=== PATIENT | male | born 1965 | race Caucasian/White ===

== ENCOUNTER 2017-08-19 06:43 | Day surgery (SDC) | payer BC, SELFPAY ==
[2017-08-13 12:47] VITALS: BMI 22.2
[2017-08-19] VITALS (8 sets, daily range): BP systolic 106–143; BP diastolic 66–82; PULSE 52–59; RESP 16–20; TEMP 36.2–36.3; O2SAT 98–100
--- NOTE | 2017-08-19 08:16 | HMH.PROC ---
[facility] Procedure Note Procedure Note:: Colonoscopy Procedure Report: Colonoscopy with cold snare polypectomy Endoscopist: Brendan Alberts II, MD Referring physician: Jose Tafoya MD Date of Procedure: August 19, 2017 Equipment: Olympus 180 variable stiffness pediatric colonoscope Sedation: MAC sedation Indication: Mr. Meza is a 52-year-old gentleman who is here for initial screening colonoscopy. He does state that both his mother and father had colon cancer in their late 50s. He reports no abdominal pain, weight loss, change in his bowel habits or rectal bleeding. Procedure: Prior to the procedure, a history and physical exam was performed, and patient's medications and allergies were reviewed. The risks, benefits and alternatives of the sedation and procedure were discussed with the patient. All questions were answered and informed consent was obtained. The patient was brought to the procedure room. Patient identification and proposed procedure were verified by the physician and the nurse. The patient was placed in a left lateral decubitus position and the scope was passed under direct vision. Throughout the procedure, the patient's blood pressure, pulse, and oxygen saturations were monitored continuously. The colonoscopy was accomplished without difficulty. The patient tolerated the procedure well. Findings: On digital rectal examination there was normal rectal tone. There were no external hemorrhoids. The prostate was 2+, smooth, soft, symmetric without nodules. The colonoscope was introduced through the anal canal to the rectum and advanced to the cecum. The ileocecal valve and appendiceal orifice were identified. The scope was advanced a short distance into the ileum which appeared grossly normal. The scope was then withdrawn into the colon. There were 3 diminutive colon polyps identified in the descending ?1 and sigmoid ?2. These ranged in size from 4-5 mm and were all removed via cold snare polypectomy. The remaining cecum, ascending, transverse, descending, sigmoid and rectum were grossly normal. There were no other mucosal abnormalities identified. Upon retroflexion within the rectum there were grade 1 internal hemorrhoids. Impression: 1. Diminutive colonic polyps ?3 2. Grade 1 internal hemorrhoids Plan: I will follow up the polyp pathology and recommend repeat colonoscopy again in 5 years based upon the patient's family history and polyp histology. I would encourage fiber supplementation on a long-term daily maintenance basis.
--- NOTE | 2017-08-19 15:33 | P.PN_ITS ---
[facility] [place] Anesthesia Checklist - Patient Identification Patient Identification: Arm Band - Structural Data Admitted From: Home Planned Operative Procedure/s: colonoscopy Consent for Planned Operative Procedure(s) Verified: Yes Verified Documents: Surgical Consent, History and Physical - NPO Status Verified Time NPO: 00:00 - Additional verifications Anesthesia Reactions: No - Airway Assessment C-Spine Mobility Assessed: Yes (mp2) TMJ Mobility Assessed: Yes Dentition: Good Dentition - Neurological Assessment Level of Consciousness: Awake, Alert - Anesthesia Plan Anesthesia Risk discussed: Yes Anesthesia Plan: Verified ASA Class: I Anesthesia Type: MAC [facility] [place] Anesthesia HX I have reviewed the patient's past medical history: Yes Medical History: Denies:: Diabetes Mellitus Type 1, Diabetes Mellitus Type 2, Internal Pacemaker, Lung Disease, Seizures Other Surgeries: No: Pacemaker
== END 2017-08-19 09:40 | disposition home or self-care (01) ==
LOC: OUTP 06:46
PROVIDERS: PCP Family Medicine; Visit Provider Internal Medicine Gastroenterology
PROC: 0DJD8ZZ Inspection of Lower Intestinal Tract, Via Natural or Artificial Opening Endoscopic (ICD-10-PCS; CPT 45378; principal; 2017-08-19 08:00)
DX: Z12.11 Encounter for screening for malignant neoplasm of colon (principal); K63.5 Polyp of colon; K64.0 First degree hemorrhoids; Z80.0 Family history of malignant neoplasm of digestive organs
CPT/HCPCS: 45380

== ENCOUNTER 2020-05-28 09:54 | Emergency (ER) | payer BC, SELFPAY ==
[2020-05-28 10:55] VITALS: BP 130/77; PULSE 66; RESP 14; TEMP 36.8; O2SAT 98; BMI 22.2
--- NOTE | 2020-05-28 11:15 | HMH.EDUTC ---
[facility] Disposition Clinical Impression: Exposure to COVID-19 virus Disposition: Home, Self-Care Condition on Discharge: Good Instructions: Preventing the Spread of Coronavirus Discharge Instructions Additional Instructions: Drink plenty of fluids. Take tylenol for pain or fever. Follow up with your regular doctor. GO TO THE ER FOR ANY WORSENING SYMPTOMS Referrals: Jorge Tafoya MD [Primary Care Provider] - Time of Disposition: 11:16 Medical Decision Making - Medical Records Medical records reviewed: No: I reviewed the patient's medical records. - Hung Inquiry Pt receiving controlled substance: No Vital Signs: 05/28/20 10:55 05/28/20 11:20 Temperature 98.2 F 98.2 F Temperature Source Oral Pulse Rate 66 Pulse Rate [Right Brachial] 66 Respiratory Rate 14 14 Blood Pressure 130/77 Blood Pressure [Right Arm] 130/77 Blood Pressure Mean [Right Arm] 94 Blood Pressure Source [Right Arm] Automatic Cuff Blood Pressure Position [Right Arm] Sitting 02 Sat by Pulse Oximetry 98 Oxygen Delivery Method Room Air Orders (Tests/Meds): ORDERS Category Date Time Status Covid-19 Nasal PCR ([facility]) Routine Lab 05/28/20 11:00 Received [facility] HPI - General Stated complaint: covid exposure Time Seen by Provider: 05/28/20 11:15 Mode of Arrival: Ambulatory Source of Information: Patient Limitations: No Limitations Description of Symptoms (Recalled from Triage Doc. by RN): PATIENT C/O HEADAHCE, CHILLS, AND BODY ACHES X 4 DAYS HEENT Symptoms (Recalled from RN notes): No Resp Symptoms (Recalled from RN notes): No Skin Symptoms (Recalled from RN notes): No MS Symptoms (Recalled from RN notes): No Functional Status (Recalled from RN notes): WNL - History of Present Illness Provider Complaint: He c/o chilling and having body aches for the past 4 days. He denies other symptoms. He would like to be checked for covid. - Related Data Home Medications Medication Instructions Recorded Confirmed No Known Home Medications 08/13/17 08/13/17 Allergies Allergy/AdvReac Type Severity Reaction Status Date / Time No Known Allergies Allergy Verified 08/13/17 12:45 - Worker's Comp Is this a Worker's Comp case?: No [facility] History - Hepatitis A Screen Drug use history?: No High risk sexual behaviors?: No History of sexually transmitted infection?: No Currently employed?: No Childcare worker?: No Do you have indoor plumbing?: Yes Do you have electricity?: Yes Attestation statement:: This patient has been screened for Hepatitis A risk factors. I have reviewed the patient's past medical history: Yes Medical History: Denies:: Diabetes Mellitus Type 1, Diabetes Mellitus Type 2, Internal Pacemaker, Lung Disease, Seizures Other Surgeries: No: Pacemaker - Social History Alcohol Intake: never Occupational Status: other ROS Obtained: Yes All systems reviewed & no additional complaints - Constitutional Constitutional: Reports system reviewed and no additional complaints, except as docu - Eyes Eyes: Reports system reviewed and no additional complaints, except as docu - ENT Ears, Nose, Mouth, and Throat: Reports system reviewed and no additional complaints, except as docu - Cardiovascular Cardiovascular: Reports system reviewed and no additional complaints, except as docu - Respiratory Respiratory: Yes system reviewed and no additional complaints, except as docu - Gastrointestinal Gastrointestingal: Reports: system reviewed and no additional complaints, except as docu Physical Exam - General General appearance: alert, in no apparent distress - Head Head exam: atraumatic, normocephalic, normal inspection - Eye Eye exam: Present: normal appearance, PERRL, EOMI - ENT ENT exam: Present: normal exam, normal oropharynx, mucous membranes moist, TM's normal bilaterally, normal external ear exam - Neck Neck exam: Present: normal inspection, full ROM, trachea midlin
[2020-05-28 11:20] VITALS: BP 130/77; PULSE 66; RESP 14; TEMP 36.8; O2SAT 98
--- NOTE | 2020-05-28 15:45 | PC.NURSE ---
patient notified of positive covid results
== END 2020-05-28 11:22 | disposition home or self-care (01) ==
PROVIDERS: Emergency Provider Nurse Practitioner Family; PCP Family Medicine
DX: U07.1 COVID-19 (principal)
CPT/HCPCS: 99202; G0463; U0003

== ENCOUNTER 2022-11-02 06:32 | Day surgery (SDC) | payer BC, SELFPAY ==
[2022-08-28 14:02] VITALS: BMI 22.9
[2022-10-31 12:59] VITALS: BMI 22.8
[2022-11-02 06:43] VITALS: BP 123/72; PULSE 55; RESP 18; TEMP 36.1; O2SAT 97
[2022-11-02 07:15] VITALS: O2SAT 97
--- NOTE | 2022-11-02 07:19 | P.PN_ITS ---
[facility] Disclaimer: The information contained in this section may have been updated after the patient was seen, as this information can be updated by other users. Medical History History of COVID-19 No significant past medical history Surgical History Hx of bilateral inguinal hernia repair Family History Mother Colon cancer Father Colon cancer Father Lung cancer Other Family history of stroke Social History Smoking Status: Never smoker alcohol intake: never substance use type: denies use current occupational status: employed Travel in the last 8 weeks: None household members: spouse housing: house marital status: education level: high school service: No long-term: No current occupational exposures/hazards: Yes caffeine: Yes special toma needs: No agree to transfusion: No do you feel safe at home: Yes victim of physical abuse: No victim of emotional abuse: No victim of sexual abuse: No would you like helpful sources: No [facility] Anesthesia Checklist Patient Identification Patient Identification: Arm Band Structural Data Admitted From: Home Planned Operative Procedure/s: Colonoscopy Consent for Planned Operative Procedure(s) Verified: Yes Verified Documents: Surgical Consent and History and Physical NPO Status Verified Time NPO: 00:00 Additional verifications Anesthesia Reactions: No Airway Assessment C-Spine Mobility Assessed: Yes TMJ Mobility Assessed: Yes Dentition: Good Dentition Neurological Assessment Level of Consciousness: Awake and Alert Anesthesia Plan Anesthesia Risk discussed: Yes Anesthesia Plan: Verified ASA Class: I Anesthesia Type: General
--- NOTE | 2022-11-02 07:42 | HMH.SCOPE ---
Procedure: Date: 11/02/22 Patient Date of :: 1965 Procedure Performed:: Total colonoscopy to terminal ileum with polypectomy using cold snare Indications:: Patient is a 57-year-old male with family history of colon cancer in both his parents diagnosed under 60 years old. He did have a colonoscopy [address] Brendan Alberts and had 3 polyps removed. He had lymphoid aggregate, hyperplastic polyp, and a tubular adenoma. 5-year follow-up was recommended. Performing Provider:: Nicholas Belle MD Referring Provider:: Jose Tafoya MD Sedation:: MAC sedation Procedure:: Patient history was obtained and appropriate physical examination was performed. Patient's medications and allergies were reviewed. Informed consent was obtained after explaining the benefits, alternatives, and risks of the procedure including, but not limited to, bleeding, perforation, missed lesions, and adverse reaction to anesthesia medications. Patient was transported to endoscopy procedure room. Patient was connected to monitoring devices. Throughout the procedure the patient's blood pressure, pulse, and oxygen saturations were monitored continuously. Patient identification and planned procedure were verified by the staff. Patient was positioned in lateral decubitus position. Digital anorectal exam was performed. Variable stiffness Olympus colonoscope was inserted and advanced under direct visualization to the cecum. Adequacy of the colonic preparation was noted. The colonoscope was advanced a short distance into the terminal ileum. The colonoscope was then slowly withdrawn while carefully examining the color, texture, anatomy, and integrity of the mucosoa circumferentially. Within the rectum retroflexion was performed. Colonoscope was then withdrawn. Colonic preparation was excellent. There was a small likely adenomatous polyp just distal to the hepatic flexure which was removed with cold snare. Findings:: Rare diverticuli Small polyp proximal transverse colon Recommendations:: Follow-up colonoscopy pending pathology, likely within 5 years Complications:: None immediately apparent Estimated blood obtained (mL): 1 Colonoscopy Component Colonoscopy Component Was a colonoscopy performed during today's procedure?: Yes Recommended follow up colonoscopy of at least 10 years?: No If no, follow up colonoscopy recommended in ___ years?: 5 Reason for not recommending >/= 10 yr follow-up interval?: Family history, history of polyps
[2022-11-02 07:45] VITALS: BP 90/43; PULSE 52; RESP 14; TEMP 36.1; O2SAT 94
[2022-11-02 07:55] VITALS: BP 93/45; PULSE 47; RESP 16; O2SAT 100
[2022-11-02 08:05] VITALS: BP 106/61; PULSE 45; RESP 16; O2SAT 100
[2022-11-02 08:15] VITALS: BP 106/72; PULSE 46; RESP 16; O2SAT 100
== END 2022-11-02 08:16 | disposition home or self-care (01) ==
PROVIDERS: PCP Family Medicine; Visit Provider Surgery
PROC: 0DJD8ZZ Inspection of Lower Intestinal Tract, Via Natural or Artificial Opening Endoscopic (ICD-10-PCS; CPT 45385; principal; 2022-11-02 07:30)
DX: Z12.11 Encounter for screening for malignant neoplasm of colon (principal); D12.3 Benign neoplasm of transverse colon; Z80.0 Family history of malignant neoplasm of digestive organs
CPT/HCPCS: 45385

== ENCOUNTER → 2022-12-06 16:20 | Outpatient (CLI) | payer BC, SELFPAY ==
--- NOTE | 2022-12-06 16:26 | XR_ITS ---
PROCEDURE INFORMATION: Exam: XR Left Knee Exam date and time: 12/06/2022 4:33 PM Age: 57 years old Clinical indication: Pain; Knee; Left; Additional info: Pain no injury TECHNIQUE: Imaging protocol: Radiologic exam of the left knee. Views: 3 views. COMPARISON: No relevant prior studies available. FINDINGS: Bones/joints: Slight concavity along the weight-bearing surface of the medial femoral condyle in a 5 mm region can in some cases indicate a subchondral stress or insufficiency fracture. MR imaging would provide more definitive assessment. There is no significant degenerative change. There is no dislocation. No aggressive bone lesions are present. Small osteochondral bodies in the popliteal soft tissues are likely within a popliteal cyst. Soft tissues: Unremarkable. IMPRESSION: 1. Slight concavity along the weight-bearing surface of the medial femoral condyle in a 5 mm region can in some cases indicate a subchondral stress or insufficiency fracture. Consider MR imaging for more definitive assessment. 2. Osteochondral bodies in the a presumed popliteal cyst.
== END ==
PROVIDERS: PCP Family Medicine; Visit Provider Family Medicine
DX: M25.562 Pain in left knee (principal)
CPT/HCPCS: 73562

== ENCOUNTER 2023-07-09 15:47 | Outpatient (CLI) | payer BC, SELFPAY ==
--- NOTE | 2023-07-09 15:56 | US_ITS ---
FINAL REPORT CLINICAL HISTORY: LIPOMA OF FACE FINDINGS: Limited sonographic images were obtained of the left side of the face at the area of interest. There is an 18 x 5 x 19 mm mass at the left face at the site of palpable abnormality which may represent a lipoma. IMPRESSION: Palpable abnormality likely represents lipoma. Reviewed, Interpreted and Dictated by Nicholas Samuels III, MD Transcribed by Pat Rojas Authenticated and [facility]
== END 2023-07-09 23:59 ==
LOC: RAD 15:48
PROVIDERS: PCP Internal Medicine Adolescent Medicine; Visit Provider Internal Medicine Adolescent Medicine
DX: D17.0 Benign lipomatous neoplasm of skin and subcutaneous tissue of head, face and neck (principal)
CPT/HCPCS: 76536

== ENCOUNTER 2024-11-22 11:10 | Outpatient (CLI) | payer BC, SELFPAY ==
--- OUTSIDE RECORDS SUMMARY | 2024-11-22 11:13 | XMS_ITS | Patient Health Record ---
Author Organization [facility] Address [address] [place] [address] [place] [address] Support Name Relationship Address Phone Unavailable Emergency Contact Unknown SEBASTIÁN LEMONS Guarantor Unknown [phone] Reason For Referral No Information Problems Problem Type SNOMED Code ICD Code Onset Dates Problem Status W/U Status Risk Notes Problem Counseling (830814283) Other specified counseling (Z71.89) 06/02/19 19 Inactive confirmed Problem Screening procedure (48504040) Encounter for screening, unspecified (Z13.9) 11/07/19 17 Inactive confirmed Problem Shortness of breath (222829652) Shortness of breath (R06.02) 06/02/19 19 Inactive confirmed Problem Dyspnea (163548674) Dyspnea, unspecified (R06.00) 11/07/19 17 Active confirmed Problem Cough (95437711) Cough (R05) 11/07/19 17 Active confirmed Problem [place] workers' pneumoconiosis (22849955) Coalworker's pneumoconiosis (J60) 11/07/19 17 Active confirmed Problem Chronic bronchitis (84901399) Unspecified chronic bronchitis (J42) 11/07/19 17 Active confirmed Plan Of Treatment No Information Insurance Providers Payer Name Payer Address Payer Phone Subscriber Number Group Number Insured Name Patient Relationship to Insured Coverage Start Date Coverage End Date [facility] [address] [address] [place] [address] [id number] SEBASTIÁN LEMONS Self - patient is the insured 7
--- OUTSIDE RECORDS SUMMARY | 2024-11-22 11:13 | XMS_ITS | Clinical Summary ---
Author Organization [facility] Address [address] [place] [id number] Phone [email or web address] Care Team Providers Care Traffic Rate Computer Name Role Phone Unavailable Primary Care Provider Unavailabl e Allergies Active Allergy Reactions Criticality Noted Date Comments Sulfamethoxazole-Trimethoprim GI intolerance Medications ondansetron ODT (ZOFRAN-ODT) [address] 4 mg under the tongue. 07/08/2024 Active amLODIPine (NORVASC) 5 MG tablet Take 5 mg by mouth 1 (one) time each day. Active Active Problems No known active problems Encounters Date Type Department Care Team Description 09/22/2024 3:45 PM EDT Clinical Support [facility] [place] [address] [place] [phone] Monique Sorenson MA Blood pressure check (Primary Dx) from Last 3 Months Social History Tobacco Use Types Packs/Day Years Used Date Smoking Tobacco: Never Smokeless Tobacco: Never Intimate Partner Violence Answer Date R ecorded Insults You Not on file 09/06/2020 Threatens You Not on file 09/06/2020 Screams at You Not on file 09/06/2020 Physically Hurt Not on file 09/06/2020 Intimate Partner Violence Score Not on file 09/06/2020 Stress Answer Date Recorded Stress in your Life Not on file 03/30/2024 Dealing with Stress 3 03/30/2024 Sex and Gender Information Value Date Recorded Sex Assigned at Not on file Legal Sex Male 8:17 AM CDT Gender Identity Not on file Sexual Orientation Not on file Last Filed Vital Signs Vital Sign Reading Time Taken Comments Blood Pressure 156/76 09/22/2024 3:51 PM EDT Pulse 65 09/22/2024 3:51 PM EDT Temperature 36.8 C (98.2 F) 09/22/2024 3:51 PM EDT Respiratory Rate 14 07/08/2024 9:24 AM EST Oxygen Saturation 98% 09/22/2024 3:51 PM EDT Inhaled Oxygen Concentration - - Weight 70.8 kg (156 lb) 02/26/2024 2:12 PM EDT Height 179.1 cm (5' 10.5 ) 02/26/2024 2:12 PM ED T Body Mass Index 22.07 02/26/2024 2:12 PM EDT Plan of Treatment Health Maintenance Due Date Last Done Comments Dental Cleaning/Exam 1965 HIV Screening 1965 Hepatitis C Screening 1965 Annual Preventive Exam 1982 Hep B Infection Screening - Triple Screen 1982 Tetanus Diphtheria and Pertu ssis Immunization (1 - Tdap) 1983 Colorectal Cancer Screening 1994 Zoster Immunization (1 of 2) 2014 Covid-19 Immunization (1 - 2 season) 2024 Influenza Immunization (Seas on Ended) 2025 HIB Immunization Aged Out No longer e ligible based on patient's age to complete this topic HPV Immunization Aged Out No longer e ligible based on patient's age to complete this topic Hepatitis A Immunization Aged Out No longer eligible based on patient's age to complete this topic Hepatitis B Immunization Aged Out No longer eligible based on patient's age to complete this topic Pneumococcal: Ped (0 to 5 Yr s) and At-Risk Member (6 to 64 Yrs) Aged Out No longer e ligible based on patient's age to complete this topic Polio Immunization Aged Out No longer eligible based on patient's age to complete this topic Insurance [place] [address] [id number] [place] [id number]
[2024-11-22 11:49] LABS: Albumin Level 4.2 g/dl (3.5-5.0); Chloride 100 mmol/L (98-107)
[2024-11-22 11:50] LABS: Potassium 4.4 mmoL/L (3.5-5.1); Sodium 137 mmol/L (136-145)
[2024-11-22 11:52] LABS: Alanine Aminotransferase 19 U/L (12-78); Aspartate Amino Transferase 26 U/L (17-59); Blood Urea Nitrogen 13 mg/dl (9-20); Estimated Glomerular Filt Rate 99 ml/min (>60); GFR (African American) 119 ML/MIN (>60)
[2024-11-22 11:53] LABS: Albumin/Globulin Ratio 1.4 (1.1-1.8); Alkaline Phosphatase 50 U/L (38-126); Anion Gap 12.4 mEq/L (5-15); Bilirubin,Total 0.9 mg/dl (0.2-1.3); Calcium 9.3 mg/dl (8.4-10.2); Carbon Dioxide 29 mmol/L (22.0-30.0); Chol/HDL Ratio 3.8 (1-3.5); Cholesterol 171 mg/dl (140-200); Globulin 2.9 g/dL (1.3-3.2); Glucose 97 mg/dl (74-100); HDL Cholesterol 45 mg/dl (40-60); Total Protein,Serum 7.1 g/dl (6.3-8.2); Triglycerides 77 mg/dl (30-150); VLDL Cholesterol 15 mg/dL (0-40)
[2024-11-22 12:04] LABS: Direct LDL Cholesterol 84.09 mg/dL (100-129)
== END 2024-11-22 23:59 | disposition home or self-care (01) ==
LOC: LAB 11:11
PROVIDERS: PCP Internal Medicine Adolescent Medicine; Visit Provider Nurse Practitioner Family
DX: Z00.00 Encounter for general adult medical examination without abnormal findings (principal)
CPT/HCPCS: 36415; 80053; 80061